=== PATIENT | female | born 1990 | race Two or more races ===

== ENCOUNTER → 2017-07-28 | Outpatient (CLI) | payer OTHER ==
--- NOTE | 2017-07-28 17:23 | RADIOLOGY IMAGING REPORT ---
FACILITY: [facility] PATIENT NAME: Flora King : 1990 MR: [id number] V: [id number] EXAM DATE: ORDERING PHYSICIAN: MARTHA ZHU TECHNOLOGIST: Location: [facility] [place] Patient: Flora King : 1990 Visit/Account:[id number] Date of Sevice: 07/28/2017 Exam type: SHOULDER MIN 2 VIEWS LEFT History: Left shoulder injury pain on anterior shoulder radiating superiorly unable to extend arm Comparison: None. Findings: Two views of the left shoulder reveal no evidence of acute fracture or dislocation. No significant a rthritic change seen. IMPRESSION: 1. No osteoarticular abnormality the left shoulder seen. If patient's pain continues MR recommended Report Dictated By: Janie Lynn MD at 07/28/2017 5:19 PM Report E-Signed By: Janie Lynn MD at 07/28/2017 5:20 PM WSN:[email or web address]
== END ==
LOC: RAD 16:50
PROVIDERS: ATTEND Nurse Practitioner Family
DX: M25.512 Pain in left shoulder (principal)